=== PATIENT | female | born 1945 | race Caucasian/White ===

== ENCOUNTER → 2016-10-16 | Outpatient (CLI) | payer MEDICARE, OTHER ==
[~2016-10-16] MED LIST: BAYER ASPIRIN325 M1 PO; BENTYL10 M1 PO; DELZICOL400 M2; MULTI VITAMIN1 EACH PO; NEXIUM PO; TRAMADOL HCL50 M2 PO; TYL325 PO
--- NOTE | ~2016-10-16 | CO ---
Unit #: [id number] #: [id number] Patient: CARMEN MORROW [id number] [address] [place], [place] [address] [id number] MR#: [id number] NAME: CARMEN MORROW ROOM: Age: 71 Sex: F Admission Date: 10/16/2016 : 1945 Attending Physician: Kenendy Gaxiola M.D. Primary Care Physician: Sumanth Dumont M.D. Consultation Date: 10/16/2016 CONSULTATION REPORT REASON FOR CONSULTATION Preoperative medical evaluation prior to left total knee arthroplasty, scheduled by Dr. Gaxiola for 10/30/16. HISTORY OF PRESENT ILLNESS The patient is a 71-year-old female who presents to pre-procedural screening for the reasons indicated above. Her only complaint during the time of this interview today is left knee pain which she describes as continuous, aching and stabbing, relieved by tramadol. She has been evaluated by Dr. Gaxiola and scheduled for the above referenced procedure. She denies upper chest, back, arm, neck, jaw pain or pressure, dyspnea on exertion, paroxysmal nocturnal dyspnea, orthopnea or sleep apnea/snoring. She denies lightheadedness, dizziness, presyncope, syncope or palpitations. She denies history of myocardial infarction, congestive heart failure, CVA, TIA, diabetes or kidney disease. PAST MEDICAL HISTORY 1. Osteoarthritis. 2. Ulcerative colitis, in remission, under the care of Dr. Rian Lee. 3. Obesity, BMI 32. 4. GERD. 5. History of sinus surgery without upper airway concerns. 6. Dental - last dental exam two months ago with cleaning which was negative, per her report. PAST SURGICAL HISTORY 1. Hysterectomy. 2. Bladder repair. 3. Sinus surgery. 4. Cholecystectomy. 5. Partial right knee replacement. 6. Bilateral Lasik surgery. The patient denies a personal and family history of complications to anesthesia. ALLERGIES Sulfa causes red bumps and Flagyl causes fever and flu-like symptoms. Adverse reaction to NSAIDs as she cannot take because of history of ulcerative colitis. Denies latex allergy. CURRENT MEDICATIONS 1. Nexium 40 mg p.o. daily. 2. Delzicol 1200 mg p.o. t.i.d. Unit #: [id number] #: [id number] Patient: CARMEN MORROW 3. Bentyl 10 mg p.o. b.i.d. p.r.n. 4. Tramadol HCL 50 mg p.o. q.4 hours p.r.n. pain. 5. Multivitamin, one p.o. daily. SOCIAL HISTORY Occasionally drinks a glass of wine. Denies tobacco use and illicit drug use. FAMILY HISTORY Mother - colon cancer and permanent pacemaker placement. Father - coronary artery disease. REVIEW OF SYSTEMS Denies dysuria, foul smelling urine, urinary frequency and hematuria. No fever, chills, nausea, vomiting or diarrhea. She is able to walk up a flight of stairs and perform activities of daily living without dyspnea on exertion or chest pain. A ten point review of systems is conducted and otherwise negative except as indicated under history of present illness above. PHYSICAL EXAMINATION GENERAL: 71-year-old female awake, alert, in no acute distress. VITAL SIGNS: Temperature 97.1, heart rate 74, respiratory rate 18, blood pressure 153/81. Oxygen saturation 98% on room air. HEENT: Atraumatic, normocephalic. Sclerae anicteric. No discharge from eyes, ears or nares. LYMPHS: No preauricular, postauricular, tonsillar, submental, anterior, posterior, cervical adenopathy. ENDOCRINE: No thyromegaly, thyroid nodules or tenderness. RESPIRATORY: Clear to auscultation in all [place] bilaterally without wheezes, rhonchi or rales. CARDIOVASCULAR: S1, S2. Regular rate and rhythm without murmur or rub. GI: Bowel sounds positive x4 quadrants. Soft, nontender, nondistended. EXTREMITIES: No edema, cyanosis or clubbing. MUSCULOSKELETAL: Strength 5/5 all extremities bilaterally. Flexion and extension without atrophy or tenderness. NEUROLOGICAL: Alert and oriented x3. Speech clear. Follows commands. DIAGNOSTIC STUDIES LABORATORY: WBC 5.7, hemoglobin 12.1, hematocrit 37.2, platelet count 281,000. Sodium 140, potassium 3.8, chloride 107, CO2 27, glucose 96, BUN 10, creatinine 0.7, calcium 9.2, AST 16, ALT 11, alkaline phos 86, bili total 0.6, total protein 7.0, albumin 3.8. Urinalysis - leukocyte esterase 2+, nitrate negative, blood negative, WBCs 2-5, RBCs 0-2, bacteria negative, squamous cells occasional. Urine culture and sensitivity not indicated. PT 10.0, INR 1.0. Blood type A positive. Antibody screen negative. MRSA nasal swab report pending at this time. IMPRESSION The patient is a 71-year-old female who presents to pre-procedural screening for: Unit #: [id number] #: [id number] Patient: CARMEN MORROW 1. Preoperative medical evaluation prior to left total knee arthroplasty as scheduled by Dr. Gaxiola: The patient's [place]lin Revised Cardiac Risk Index is equal to 0.4% based on information available today. This represents the patient's perioperative risk of fatal or non-fatal myocardial infarction, cardiopulmonary arrest, arrhythmia and/or pulmonary edema. This has been discussed in detail with the patient. She wishes to proceed with surgery as scheduled at this time. 2. History of ulcerative colitis, in remission: Will continue the patient's home dose of Delzicol perioperatively. 3. Obesity, body mass index 32: Weight loss to recommended BMI is recommended. 4. Gastroesophageal reflux disease: Will continue home dose of proton pump inhibitor. 5. History of sinus surgery. 6. Osteoarthritis. 7. Pyuria: The patient is completely asymptomatic at this time. A urine culture and sensitivity are not indicated based on the laboratory report today. However, the patient is somewhat concerned regarding the fact that she has 2+ leukocyte esterase in the urine result today. Therefore, I have given her a prescription for Cipro 250 mg tab, one p.o. q.12 hours x3 days. A straight cath urinalysis with C and S, if indicated, has been ordered for the a.m. of OR. Thank you for allowing us to participate in the care of this patient. Will gladly follow her for postop medical management pending order of Dr. Gaxiola. Dictated by... Elyssa Barragan A.P.R.N. for Frannie Gay M.D. MAI/alcon TD: 10/16/2016 11:22 JOB #: [id number] CONSULTATION REPORT Page 1 of 1 X Elyssa Barragan APRN CONSULTATION REPORT
[2016-10-16 08:45] LABS: URINE APPEARANCE CLEAR; URINE BILIRUBIN NEG (NEG); URINE BLOOD NEG (NEG); URINE COLOR YELLOW; URINE GLUCOSE NEG (NEG); URINE KETONE TRACE (NEG); URINE NITRATE NEG (NEG); URINE PROTEIN NEG (NEG); URINE UROBILINOGEN 0.2 MG/DL (NEG)
[2016-10-16 08:48] LABS: HEMATOCRIT 37.2 % (35.0-45.0); HEMOGLOBIN 12.1 gm/dL (12.0-16.0); MEAN CELL VOLUME 85.6 FL (83-96); MEAN CORPUSCULAR HEMOGLOBIN 27.8 PG (28-34); MEAN CORPUSCULAR HGB CONC 32.5 g/dL (30-36); MEAN PLATELET VOLUME 8.3 FL (6.5-11.5); RED BLOOD COUNT 4.35 X10e (3.90-5.30); RED CELL DISTRIBUTION WIDTH 14.1 % (11.0-15.5); U HYALINE CASTS AUWI 0-2 /[LPF]; URBCS1 AUWI 0-2 /[HPF] (0-2); URINE BACTERIA AUWI NEG (NEGATIVE); WHITE BLOOD COUNT 5.7 X10e3 (4.0-10.5)
[2016-10-16 09:13] LABS: CULTURE INDICATED? NO
[2016-10-16 09:14] LABS: URINE SQUAMOUS EPITHELIAL CELL OCCAS /[HPF]
[2016-10-16 09:15] LABS: URINE LEUKOCYTE ESTERASE 2+ (NEG)
[2016-10-16 09:16] LABS: URINE SOURCE CLEAN CATCH
[2016-10-16 09:21] LABS: ALBUMIN SERUM 3.8 g/dL (3.5-5.0); BILIRUBIN,TOTAL 0.6 mg/dL (0.2-2.0); BUN/CREATININE RATIO 14.28; CALCIUM SERUM 9.2 mg/dL (8.4-10.2); CREATININE SERUM 0.7 mg/dL (0.6-1.4); GLOM FILT RATE Estimated 88.4 mL/min (>60); POTASSIUM 3.8 mmol/L (3.5-5.1)
== END | disposition home or self-care (01) ==
LOC: CAMB 07:52
PROVIDERS: Orthopaedic Surgery
DX: Z01.812 Encounter for preprocedural laboratory examination (principal); M17.12 Unilateral primary osteoarthritis, left knee; K51.90 Ulcerative colitis, unspecified, without complications; Z98.890 Other specified postprocedural states; K21.9 Gastro-esophageal reflux disease without esophagitis; E66.9 Obesity, unspecified; Z68.32 Body mass index [BMI] 32.0-32.9, adult; Z79.82 Long term (current) use of aspirin; Z90.710 Acquired absence of both cervix and uterus; Z90.49 Acquired absence of other specified parts of digestive tract; Z96.651 Presence of right artificial knee joint
CPT/HCPCS: 36415; 80053; 81003; 85027; 85610; 86850; 86900; 86901; 87070

== ENCOUNTER 2016-10-30 05:38 | Inpatient (IN) | payer OTHER ==
--- NOTE | ~2016-10-30 | DS ---
Unit #: [id number] #: [id number] Patient: CARMEN MORROW [id number] [facility]. [place], [place] [address] [id number] MR#: [id number] NAME: CARMEN MORROW ROOM: 448 Age: 71 Sex: F Admission Date: 10/30/2016 : 1945 Discharge Date: 10/31/2016 Attending Physician: Kennedy Gaxiola M.D. Primary Care Physician: Sumanth Dumont M.D. DISCHARGE SUMMARY REASON FOR ADMISSION Severe osteoarthritis of the left knee. PROCEDURE PERFORMED Left total knee arthroplasty. HOSPITAL COURSE The patient was admitted to [facility] with a history of severe osteoarthritis of the left knee. The patient has undergone left total knee replacement. Today she is in stable condition. Her temperature is 98.4, blood pressure 134/55, heart rate 92 and regular, respiratory rate 18. Her incision is healing well. Neurovascularly intact. She has 2+ pulses in her lower extremities. The plan will be for her to be discharged later today under the care of [facility]. DISPOSITION Home with [facility]. DISCHARGE MEDICATIONS Per medication reconciliation list. 1. She will be on her regular home medications with the exception of Ultram, which she will take a little higher dose. 2. Aspirin 325 mg b.i.d. DIAGNOSTIC DATA LABORATORY: Hemoglobin 10.0. FOLLOWUP/DISCHARGE INSTRUCTIONS 1. The patient will be going home later today. 2. She will be on aspirin 325 mg b.i.d. 3. She will wear TROY hose during the day and off at night. 4. The patient will begin physical therapy, including active, active assist range of motion, strengthening and progressive ambulation. She will begin with a walker and progress to a cane as tolerated. 5. The patient will follow up with Dr. Gaxiola on 12/06/2016. Dictated by... Julio C Sylvester P.A.-C- for Kennedy Gaxiola M.D. Unit #: [id number] #: [id number] Patient: CARMEN MORROW KF/gz TD: 10/31/2016 07:59 JOB #: [id number] DISCHARGE SUMMARY Page 1 of 1 X X DISCHARGE SUMMARY
--- NOTE | ~2016-10-30 | OR ---
Unit #: [id number] #: [id number] Patient: CARMEN MORROW [id number] [place], [place] [address] [id number] MR#: [id number] NAME: CARMEN MORROW ROOM: [facility] Date of Procedure: 10/30/2016 Admission Date: 10/30/2016 Surgeon: Kennedy Gaxiola M.D. : 1945 Attending Physician: Kennedy Gaxiola M.D. Primary Care Physician: Sumanth Dumont M.D. OPERATIVE REPORT PREOPERATIVE DIAGNOSIS Primary localized osteoarthritis of the left knee. POSTOPERATIVE DIAGNOSIS Primary localized osteoarthritis of the left knee. PROCEDURE PERFORMED Left total knee. ASSISTANTS Nga and Brandon. ANESTHESIA Adductor canal block plus general. ESTIMATED BLOOD LOSS 100 mL. INDICATIONS FOR PROCEDURE This is a 71-year-old lady with severe pain in her left knee. She has had pain for months. It has gotten progressively worse. The patient has had difficulty walking any distance at all or standing for any period of time. She has tried injections and anti-inflammatories with no relief of her discomfort. X-rays show she has [id number] with subchondral sclerosis. She is brought to the operating room today for left total knee. DESCRIPTION OF PROCEDURE The patient was brought to the operating room, given an adductor canal block and she started on 1 g of Ancef. This will be continued postop, but discontinued within 23 hours from the start time of surgery. After this was done, the patient was brought back to the operating room, given a general anesthetic. Tourniquet placed around the left thigh. The left leg was prepped and draped in a sterile fashion. Tourniquet inflated to 250. A straight anterior skin incision was made. The subcutaneous dissected away and a medial arthrotomy performed. Patella was slid to the side. Osteophytes removed from the femur. Intramedullary guide was used and a 6-degree valgus cut was made on the distal femur. The femur was sized and found to be a size 2.5. The anterior-posterior cutting block was applied. Rotation was checked in the knee. Anterior and posterior cuts were made along with the chamfer cuts. Proximal tibial cut was made using a 0-degree cutting block. It was sized at a 2.5 as well. The remaining meniscal fragments debrided and the posterior femoral condyle Unit #: [id number] #: [id number] Patient: CARMEN MORROW osteophytes were removed. The posterior capsule and periosteum were injected with ropivacaine mixture. The trial femur applied. Drill holes were made for lugs on the femoral component. The trial tibia was applied with first a 10 and then a 12.5 insert. The 12.5 gave better stability. The knee came to full extension and good stability in extension and flexion. Rotation of the tibia was marked and the external alignment guide showed appropriate alignment of the limb. The patella was grasped with 2 towel clips, measured 20 mm thick, cut smooth at 13 and a 35 patella was the appropriate size. The 3 drill holes were made. Trial patella applied and it tracked properly. After this was done, the patient then had the drill and punch used on the tibial tray. Her knee was irrigated and dried while the cement was mixed. Then, all 3 components were cemented simultaneously. The knee was held in extension while cement hardened. After cement had hardened, it was judged that the 12.5 insert was the appropriate thickness, so this was opened and applied to the tibial tray. The tourniquet was released. Hemostasis was obtained and then the wound was irrigated with Betadine and bacitracin. The rest of the ropivacaine mixture was injected and then the wound was closed using 0 Ethibond in the arthrotomy, 0 and 2-0 Vicryl in the subcutaneous, and vandana in the skin. lead recreation assistant, Julio C Sylvester was present throughout the entire case. Dictated by... David Fowler/shane TD: 10/31/2016 02:55 JOB #: [id number] OPERATIVE REPORT Page 1 of 1 X Kennedy Gaxiola MD PROCEDURE OPERATIVE NOTE
[~2016-10-30 05:38] MED LIST changes: -BAYER ASPIRIN325 M1 PO; -TYL325 PO
[2016-10-30 06:18] LABS: URINE SOURCE CATH
[2016-10-30 06:23] LABS: URINE APPEARANCE CLEAR; URINE BILIRUBIN NEG (NEG); URINE BLOOD NEG (NEG); URINE COLOR DK YELLOW; URINE GLUCOSE NEG (NEG); URINE KETONE NEG (NEG); URINE LEUKOCYTE ESTERASE 1+ (NEG); URINE NITRATE NEG (NEG); URINE PROTEIN NEG (NEG); URINE SPECIFIC GRAVITY 1.023 (1.003-1.035)
[2016-10-30 06:26] LABS: CULTURE INDICATED? YES; URBCS1 AUWI 0-2 /[HPF] (0-2); URINE BACTERIA AUWI NEG (NEGATIVE); URINE SQUAMOUS EPITHELIAL CELL OCC /[HPF]
[2016-10-30 06:41] LABS: PROTHROMBIN TIME (PATIENT) 10.7 SECONDS (10.0-11.7)
[2016-10-31 04:11] LABS: HEMATOCRIT 30.8 % (35.0-45.0)
[2016-10-31 04:37] LABS: BUN/CREATININE RATIO 13.33; CALCIUM SERUM 8.5 mg/dL (8.4-10.2); CREATININE SERUM 0.6 mg/dL (0.6-1.4); MAGNESIUM 1.7 mg/dL (1.6-3.0); POTASSIUM 3.5 mmol/L (3.5-5.1)
[2016-10-31] MEDS ORDERED: BAYER ASPIRIN325 M1 PO (12:53)
[2016-10-31] MEDS ORDERED: TYL325 PO (12:53)
== END 2016-10-31 15:17 | disposition home health service (06) | DRG 470 ==
LOC: CSUR 05:38 → CEDOF 06:50 → C4B 06:50 → CSUR 07:00 → CEDOF 08:39 → CSUR 08:39 → C4B 09:20 → CEDOF 09:20 → C4B 10-31 15:17
PROVIDERS: Nurse Practitioner; Orthopaedic Surgery
PROC: 0SRD0J9 Replacement of Left Knee Joint with Synthetic Substitute, Cemented, Open Approach (ICD-10-PCS; principal; 2016-10-30 07:00)
DX: M17.12 Unilateral primary osteoarthritis, left knee (principal); N39.0 Urinary tract infection, site not specified; K21.9 Gastro-esophageal reflux disease without esophagitis; T38.0X5A Adverse effect of glucocorticoids and synthetic analogues, initial encounter; Y92.239 Unspecified place in hospital as the place of occurrence of the external cause; R73.9 Hyperglycemia, unspecified; Z88.2 Allergy status to sulfonamides; Z88.8 Allergy status to other drugs, medicaments and biological substances; Z90.710 Acquired absence of both cervix and uterus; Z96.651 Presence of right artificial knee joint
CPT/HCPCS: 80048; 81003; 83735; 85014; 85018; 85610; 87086; 94010; 94760; 97110; 97116; 97161; 97165; 97530; 97535; C1776; G8978-GP; G8979-GP; G8980-GP; G8987-GO; G8988-GO; G8989-GO; J0131; J0171; J0330; J0690; J0735; J1100; J1170; J2250; J2270; J2405; J2795; J3010